=== PATIENT | female | born 1965 | race Caucasian/White ===

== ENCOUNTER → 2017-04-02 | Outpatient (CLI) | payer OTHER ==
[~2017-04-02] MED LIST: ALBU8HFA4 IH; BENZ1TAB10 PO; CLOZ100 PO; DOCU250C28 PO; FERR-48 PO; FURO20 PO; GABA-531 PO; LORA10CA PO; LORA1TAB3 PO; LORA2TAB2 PO; MULT-68 PO; OMEP20 PO; POTA10TA23 PO; QUET25TA PO; ROSU20 PO
== END | disposition home or self-care (01) ==
LOC: RADPV 14:47
PROVIDERS: ATTEND Internal Medicine Critical Care Medicine
DX: J98.11 Atelectasis (principal); M41.80 Other forms of scoliosis, site unspecified
CPT/HCPCS: 71020